=== PATIENT | male | born 1950 | race Hispanic/Latino ===

== ENCOUNTER 2020-06-29 08:46 | Day surgery (SDC) | payer OTHER ==
[2020-06-23 13:00] LABS: BASOPHILS % (AUTO) 0.5 % (0.0-5.0); EOSINOPHILS % (AUTO) 0.7 % (0.0-8.0); HEMATOCRIT 33.8 % (42-54); LYMPHOCYTES % (AUTO) 20.6 % (21.0-51.0); MEAN CORPUSCULAR HEMOGLOBIN 32.5 pg (27.0-33.0); MEAN CORPUSCULAR HGB CONC 33.4 g/dL (32.0-36.0); MEAN CORPUSCULAR VOLUME 97.1 fL (79-99); MONOCYTES % (AUTO) 5.5 % (3.0-13.0); NEUTROPHILS % (AUTO) 72.4 % (40.0-77.0); PLATELET COUNT (AUTO) 258 K/uL (130-400); RED BLOOD CELL COUNT(AUTO) 3.48 MIL/uL (4.50-6.20); RED CELL DISTRIBUTION WIDTH 13.9 % (11.0-15.5); WHITE BLOOD COUNT (AUTO) 5.8 K/uL (4.8-10.8)
[2020-06-23 13:11] LABS: POTASSIUM 4.3 mmol/L (3.5-5.1)
[2020-06-23 13:14] LABS: INR 0.96 (0.85-1.15); PARTIAL THROMBOPLASTIN TIME 25.7 SEC (26.3-35.5); PROTHROMBIN TIME 10.4 SEC (9.6-11.6)
[2020-06-23 13:26] LABS: BILIRUBIN,URINE Negative (NEGATIVE); COLOR,URINE Yellow (YELLOW); GLUCOSE, URINE (UA) Negative (NEGATIVE); KETONES,URINE Negative (NEGATIVE); LEUKOCYTE ESTERASE ,URINE Large (NEGATIVE); NITRATE,URINE Negative (NEGATIVE); OCCULT BLOOD,URINE Large (NEGATIVE); PROTEIN,URINE POS 1+ mg/dL (NEGATIVE)
[2020-06-23 13:27] LABS: APPEARANCE,URINE CLOUDY (CLEAR)
[2020-06-23 13:32] LABS: BACTERIA,URINE Rare /HPF (None Seen); SQUAMOUS EPITHELIAL CELL,UR Rare /HPF (0-2); WBC,URINE 51-100 /HPF (0-1)
--- NOTE | 2020-06-26 16:53 | NUR ---
Abnormal labs Abnormal CBC, UA results were faxed over to [facility]. No further orders received.
[2020-06-28 10:53] VITALS: BP 141/69
--- NOTE | 2020-06-28 11:30 | NUR ---
REPORT EKG REPORTED TO DR UREÑA. NO NEW ORDERS GIVEN
[2020-06-29] VITALS (17 sets, daily range): BP systolic 114–160; BP diastolic 54–76
[~2020-06-29] VITALS: Ht 160 cm; Wt 71.8 kg
[2020-06-29] MEDS: CEFTRIAXONE SODIUM 1 GM IVP SCH ×2 (06:00→12:00)
[~2020-06-29 08:46] MED LIST: LEVO500T89 PO
[2020-06-29] MEDS ORDERED: LACTATED RINGERS 1000ML 1,000 ML IV ONE (10:26)
[2020-06-29] MEDS ORDERED: ASPI-1443 PO (10:52)
[2020-06-29] MEDS: GENTAMICIN SULFATE 240 MG in SODIUM CHLORIDE 0.9% 100 ML IV SCH ×2 (11:05)
[2020-06-29] MEDS ORDERED: LIDOCAINE PF 2% 5ML ABBOJECT ONE (11:13)
[2020-06-29] MEDS ORDERED: DEXAMETHASONE SOD PHOSPHATE 10MG/ML 1ML VIAL ONE (11:13)
[2020-06-29] MEDS ORDERED: SUCCINYLCHOLINE 200MG/10ML SYR ONE (11:13)
[2020-06-29] MEDS ORDERED: MIDAZOLAM HCL 1 MG/ML 2ML VIAL ONE (11:14)
[2020-06-29] MEDS ORDERED: GLYCOPYRROLATE 1 MG/5 ML SYRINGE ONE (11:14)
[2020-06-29] MEDS ORDERED: ROCURONIUM 10MG/1ML SYR 10 MG/ML ML ONE (11:14)
[2020-06-29] MEDS ORDERED: PROPOFOL 10 MG/ML 20ML VIAL IV ONE (11:14)
[2020-06-29] MEDS ORDERED: ONDANSETRON HCL 4 MG/2 ML VIAL ONE (11:14)
[2020-06-29] MEDS ORDERED: FENTANYL CITRATE PF 50 MCG/1 ML 2ML VIAL ONE ×3 (11:14→13:14)
[2020-06-29] MEDS ORDERED: NEOSTIGMINE 5MG/5ML SYR IV ONE (11:14)
--- NOTE | 2020-06-29 14:35 | NUR ---
PATIENT ARRIVED TO DAY PATIENT VIA STRETCHER BY DAVE FRANKLIN. PATIENT [id number], VITAL SIGNS STABLE. APPLE CATHETER IN PLACE AND DRAINING CLEAR FLUID WITH CONTINUOUS IRRIGATION.
--- NOTE | 2020-06-29 14:45 | NUR ---
APPLE CATHETER BAG CHANGED OUT TO LEG BAG, PATIENT TOLERATED WELL.
--- NOTE | 2020-06-29 15:10 | NUR ---
PATIENT DISCHARGED FROM FACILITY VIA WHEELCHAIR BY JOSE AMES MA. PATIENT ASSISTED INTO VEHICLE DRIVEN BY DAUGHTER.
== END 2020-06-29 15:10 | disposition home or self-care (01) ==
LOC: DAH 08:46
PROVIDERS: ATTEND Urology
DX: N40.1 Benign prostatic hyperplasia with lower urinary tract symptoms (principal); R33.9 Retention of urine, unspecified; I10 Essential (primary) hypertension; M19.90 Unspecified osteoarthritis, unspecified site; I49.1 Atrial premature depolarization; Z79.01 Long term (current) use of anticoagulants; Z79.899 Other long term (current) drug therapy; Z20.828 Contact with and (suspected) exposure to other viral communicable diseases
CPT/HCPCS: 36415; 52648; 71045; 80048; 81001; 85025; 85610; 85730; 87088; 93005; A4215; A4221; A4222; A4223; A4354; A4358 ×2; A4600; A4663; C9803; J0330; J0696; J1100; J1580; J2001; J2250; J2405; J2704; J2710; J3010 ×3; J3490; J7030; J7120; U0003